=== PATIENT | male | born 1980 | race Caucasian/White ===

== ENCOUNTER 2024-10-17 22:53 | Emergency (ER) | payer SELFPAY ==
[~2024-10-17] VITALS: Ht 172.7 cm; Wt 59.0 kg
--- NOTE | 2024-10-17 23:16 | ERN ---
ED Note History of Present Illness Stated Complaint: MEDICAL CLEARANCE Chief Complaint: Medical Clearance Time Seen by MD: 23:02 Time Seen by Midlevel: 23:20 Dictation: Mr. Torres is a 43 year old male with no reported chronic health issues who presented to the emergency department this evening for medical clearance. Patient is in custody of DPS. He reports one week of fatigue, general weakness, intermittent fever, and sore throat/pain with swallowing. He denies having chest pain, palpitations, shortness of breath, cough, abdominal pain, nausea, vomiting, diarrhea, dysuria, GUZMÁN or dizziness. Allergies: Coded Allergies: No Known Allergies (Unverified Allergy, Unknown, 10/17/24) Home Meds Active Scripts Penicillin V Potassium (Penicillin V Potassium) 500 Mg Tablet, 1 TAB PO BID for 10 Days, #20 TAB 0 Refills Prov:ALPHONSE PHILIP NP 10/18/24 Ibuprofen (Ibuprofen) 600 Mg Tablet, 600 MG PO Q6H PRN for PAIN, #12 TAB Prov:ALPHONSE PHILIP NP 10/18/24 Past Medical History Past Medical History: Hypertension Surgical History: None PSYCH History: no pertinent psych hx Social History: Negative RN Note Reviewed/Agreed w/PFSH: Yes Review of System Dictation REVIEW OF SYSTEMS: CONSTITUTIONAL: Patient denies chills, sweats and weight changes. Reports fever and chills. EYES: Patient denies any visual symptoms. EARS, NOSE, AND THROAT: No difficulties with hearing. No symptoms of rhinitis. Reports sore throat x 1 week. CARDIOVASCULAR: Patient denies chest pains, palpitations, orthopnea and paro xysmal nocturnal dyspnea. RESPIRATORY: No dyspnea on exertion, no wheezing or cough. GI: No nausea, vomiting, diarrhea, constipation, abdominal pain, hematochezia or melena. : No urinary hesitancy or dribbling. No nocturia or urinary frequency. No abnormal urethral discharge. MUSCULOSKELETAL: No myalgias or arthralgias. NEUROLOGIC: No chronic headaches, no seizures. Patient denies numbness, tingling or weakness. PSYCHIATRIC: Patient denies problems with mood disturbance. No problems with anxiety. ENDOCRINE: No excessive urination or excessive thirst. DERMATOLOGIC: Patient denies any rashes or skin changes. Initial Vital Sign VS Vital Signs Date Time Temp Pulse Resp B/P (MAP) Pulse Ox O2 Delivery O2 Flow Rate FiO2 10/17/24 22:55 97.5 82 16 148/92 97 Room Air 0 10/18/24 00:27 21 Physical Exam Dictation Vital signs: Reviewed. Afebrile Constitutional: Unkempt. Foul body odor. In custody [employer] Head/Face: Normocephalic, atraumatic. Eyes: Periorbital areas with no swelling, redness, or edema. Lids and lashes are normal. Conjunctival injection is absent. Sclera anicteric. Pupils equal, round, reactive to light. ENT: Pinnas intact and no signs of trauma or erythema. Ear canals clear and no discharge. TMs no erythema. No nasal discharge or bleeding noted. Oropharynx with no masses, or evidence of obstruction. Throat with erythema and exudates. Uvula midline. Mucous membranes moist. Speech is clear. Neck: Trachea midline, no masses palpated, and no cervical lymphadenopathy. No swelling. Supple, full range of motion. Chest/Axilla: No tenderness, no crepitus, no paradoxical movement, no retractions. Cardiovascular: Regular rate, regular rhythm, no murmur, no gallops. Symmetric pulses. No peripheral edema. Respiratory: Respirations even and unlabored. Lung sounds clear; no wheezes, rales or rhonchi. Room air spo2 99% Gastrointestinal: Inspection is normal. No distention is appreciated. Bowel sounds are normal. No mass or organomegaly . There is no tenderness. No rebound. No rigidity. No voluntary or involuntary guarding. No Mehta's sign. Neurological: Normal speech, gross motor function intact, gross sensory function intact. No focal weakness/Paresthesia. Musculoskeletal/Extremities: All extremities have full range of motion, no pain or tenderness on palpation. Symmetric pulses. Integumentary: Intact. Skin is normal color, warm and dry. Cap refill less than 2 seconds. Results (Laboratory/Radiology) Laboratory/Radiology Laboratory Tests Test 10/17/24 23:22 Influenza Type A Antigen Negative For Type A Influenza Type B Antigen Negative For Type B SARS-CoV-2, RNA, NAAT NEGATIVE SARS CoV-2 Group A Streptococcus Rapid positive (NEGATIVE) *A Labs Reviewed?: Yes ED Course ED Course Orders Procedure Category Date Status Time Influenza Type A & B, LAB 10/17/24 Complete Rapid 23:17 Covid Rna Naat LAB 10/17/24 Complete 23:17 Rapid (Group A Strep) LAB 10/17/24 Complete 23:17 Ibuprofen 600 Mg PHA 10/17/24 Complete Tablet (Motrin) 23:30 Penicillin V PHA 10/18/24 Complete Potassium (Penicillin 00:30 Current Medications Medications (Trade) Dose Ordered Sig/Hetal Route PRN Reason Start Time Stop Time Status Last Admin Dose Admin Ibuprofen (moTRIN) 600 mg ONCE ONCE PO 10/17/24 23:30 10/17/24 23:31 DC 10/18/24 00:02 Penicillin V Potassium (Penicillin V Potassium) 500 mg ONCE ONCE PO 10/18/24 00:30 10/18/24 00:31 DC 10/18/24 00:35 Vital Signs Date Time Temp Pulse Resp B/P (MAP) Pulse Ox O2 Delivery O2 Flow Rate FiO2 10/18/24 00:27 98.1 80 16 136/88 97 Room Air* 0 21 10/17/24 22:55 97.5 82 16 148/92 97 Room Air 0 Unremarkable ED course. Patient has been quiet and cooperative. He remains in law enforcement custody. Laboratory findings as noted below. Negative influenza A/B and COVID. Positive for strep. While in ED he received dose ibuprofen as well as penicillin. Findings were discussed with patient and all questions were answered. Patient medically cleared for incarceration. Medical Decision Making MDM MDM: Differential diagnosis: Influenza A/B, COVID, strep Rationale: Tests considered and ordered secondary to shared decision making include: Lab Previous outside records reviewed: Old ER visits. Risk of complication and/or morbidity or mortality of patient management: None Medications-Per medication reconciliation Need for hospitalization: Patient does not meet criteria for hospitalization. Need for emergency major/minor surgery: No There are no social concerns with this patient. Prescription drug management: Ibuprofen, penicillin V Prescriptions will include symptomatic care Patient's prior external medical records from other ER visits were reviewed by me as indicated. Prior testing and results from previous visits were reviewed. Prior tests were taken into account with medical decision making and resource utilization, independent historian/historians were used to obtain complete medical history. I independently interpreted the test that were performed, results were reviewed by me and considered findings on radiology if ordered. Medical management and examination interpretation discussions were had by me with other qualified healthcare professionals as indicated for the patient's care. DX & DISP Disposition: Discharge Departure Impression: Primary Impression: Strep throat Condition: Stable Scripts Penicillin V Potassium (Penicillin V Potassium) 500 Mg Tablet 1 TAB PO BID for 10 Days, #20 TAB 0 Refills Prov: ALPHONSE PHILIP NP 10/18/24 Ibuprofen (Ibuprofen) 600 Mg Tablet 600 MG PO Q6H PRN for PAIN, #12 TAB Prov: ALPHONSE PHILIP NP 10/18/24 Additional Instructions: Medically cleared for incarceration. Continue antibiotic penicillin V twice daily for 10 days (take until gone). May take [id number] Tylenol or ibuprofen as needed for fever or discomfort. Get plenty of rest and stay well hydrated. Drink warm fluids (T, broth) or eat soft food (soups, applesauce). Avoid irritants like smoking or spicy foods. You are no longer contagious after 24 hours after starting antibiotics as long as your fever has resolved. Change her toothbrush after 24 hours of antibiotic use to prevent reinfection. Avoid close contact with others until you have been on antibiotics for 24 hours. Return to the emergency department for any worsening of symptoms or concerns: Fever greater than 48 hours after antibiotics, throat pain becoming severe worsened, difficulty swallowing, breathing, or opening the mouth. New rash, joint pain, or swelling. Or no improvement after 3-5 days of treatment. Follow up with your primary care provider next week. Referrals: SELF,REFERRAL (PCP) Time of Disposition: 00:14 ALPHONSE PHILIP NP October 17, 2024 23:16 BRIGID HOPPER DO October 18, 2024 02:59
[2024-10-17 23:43] LABS: SARS-CoV-2, RNA, NAAT NEGATIVE SARS CoV-2 (NEGATIVE)
[2024-10-17 23:51] LABS: INFLUENZA TYPE A Negative For Type A (NEGATIVE); INFLUENZA TYPE B Negative For Type B (NEGATIVE)
[2024-10-17 23:54] LABS: RAPID GROUP A STREP positive (NEGATIVE)
[2024-10-18] MEDS: ibuPROFEN 600 MG TABLET PO ONE (00:02)
[2024-10-18] MEDS ORDERED: IBUP-2070 PO (00:10)
[2024-10-18] MEDS ORDERED: PENI500T2 PO (00:10)
[2024-10-18 00:27] VITALS: BP 136/88; PULSE 80; RESP 16; TEMP 98; O2SAT 97
[2024-10-18] MEDS: PENICILLIN V POTASSIUM 500 MG TABLET PO ONE (00:35)
== END 2024-10-18 00:41 | disposition home or self-care (01) ==
LOC: EDH 22:53
DX: J02.0 Streptococcal pharyngitis (principal); I10 Essential (primary) hypertension; Z20.822 Contact with and (suspected) exposure to COVID-19; Z79.899 Other long term (current) drug therapy
CPT/HCPCS: 87635; 87804; 87880; 99283